=== PATIENT | female | born 1980 | race Caucasian/White ===

== ENCOUNTER 2016-07-06 17:45 | Emergency (ER) | payer BC ==
[2016-07-06 18:42] VITALS: BP 107/72
--- NOTE | 2016-07-06 18:56 | UC ---
Dizzy HPI HPI Summary: DIZZINESS X 1 DAY RIGHT EAR FULLNESS, , NO EAR PAIN + NAUSEA , NO VOMITING , NO MORILLO, NO FEVER, NO CHILLS, NO SINUS PAIN OR PRESSURE - History Of Current Complaint Chief Complaint: UCEar Stated Complaint: EAR ISSUES, VERTIGO Time Seen by Provider: 07/06/16 18:27 Hx Obtained From: Patient Hx Last Menstrual Period: 07/03/16 Onset/Duration: Gradual Onset, Lasting Days - 1, Still Present Timing: Constant Severity Initially: Moderate Severity Currently: Moderate Character: Weak, Dizzy Aggravating Factor(s): Change In Head Position Alleviating Factor(s): Rest Associated Signs And Symptoms: Positive: Nausea. Negative: Vomiting, Diaphoresis, Tinnitus, Chest Pain, SOB, Palpitations, Unsteady Gait, Visual Changes, Decreased Oral Intake, Change In Medication, Change In Diet, OTC Medications - Allergies/Home Medications Allergies/Adverse Reactions: Allergies Allergy/AdvReac Type Severity Reaction Status Date / Time No Known Allergies Allergy Verified 07/06/16 18:42 PMH/Surg Hx/FS Hx/Imm Hx Previously Healthy: Yes - Surgical History Surgical History: Yes Surgery Procedure, Year, and Place: gallbladder age 13 yrs - Family History Known Family History: Negative: Diabetes - Social History Alcohol Use: Weekly Substance Use Type: None Smoking Status (MU): Never Smoked Tobacco Review of Systems Constitutional: Negative Skin: Negative Eyes: Negative ENT: Negative Respiratory: Negative Cardiovascular: Negative Gastrointestinal: Negative All Other Systems Reviewed And Are Negative: Yes Physical Exam Triage Information Reviewed: Yes Appearance: Well-Appearing, No Pain Distress, Well-Nourished Vital Signs: Initial Vital Signs Temp 98.6 F 07/06/16 18:38 Pulse 50 07/06/16 18:38 Resp 16 07/06/16 18:38 BP 107/72 07/06/16 18:38 Pulse Ox 100 07/06/16 18:38 Vital Signs Reviewed: Yes Eye Exam: Normal Eyes: Positive: Conjunctiva Clear ENT Exam: Normal ENT: Positive: Normal ENT inspection, Hearing grossly normal Neck exam: Normal Neck: Positive: Supple, Nontender Respiratory: Positive: Chest non-tender, Lungs clear, Normal breath sounds Cardiovascular: Positive: RRR, No Murmur, Pulses Normal Musculoskeletal Exam: Normal UC Physical Exam Vital Signs On Initial Exam: Initial Vitals Temp Pulse Resp BP Pulse Ox 98.6 F 50 16 107/72 100 07/06/16 18:38 07/06/16 18:38 07/06/16 18:38 07/06/16 18:38 07/06/16 18:38 - Neurological Exam Neurological: Normal, Sensory/Motor Intact, Alert, Oriented to Person Place, Time, CN Intact II-III, Reflexes Intact, Normal Gait, Speech Normal Dizzy Course/Dx - Differential Dx/Diagnosis Provider Diagnoses: VERTIGO Discharge - Discharge Plan Condition: Stable Disposition: HOME Prescriptions: Meclizine TAB* [Antivert 12.5 TAB*] 25 mg PO TID PRN #21 tab PRN Reason: Dizziness Patient Education Materials: Vertigo (ED) Referrals: Anahy Almaguer MD [Primary Care Provider] - 7 Days
== END 2016-07-06 19:02 | disposition home or self-care (01) ==
LOC: UCCORT 17:45
DX: R42 Dizziness and giddiness (principal); R11.0 Nausea; Z90.49 Acquired absence of other specified parts of digestive tract
CPT/HCPCS: 99202; G0463

== ENCOUNTER 2017-12-17 18:08 | Emergency (ER) | payer BC ==
[2017-12-17 19:20] VITALS: BP 121/72
--- NOTE | 2017-12-17 19:55 | UC ---
Complaint Female HPI - HPI Summary HPI Summary: 37-year-old woman comes in with a complaint of vaginal discharge. It's been going on for couple of days. It's a ross colored discharge occasionally yellow. Very irritating. No dysuria and no fevers no chills no flank pain no abdominal pain. Patient reports she's had bacterial vaginosis before and that' s what this feels like. I asked her if she had any concerns of STI's she denied any concern of STI. She reports she has not been sexually active for a long time. - History Of Current Complaint Chief Complaint: UCGU Stated Complaint: DISCHARGE Time Seen by Provider: 12/17/17 19:33 Hx Last Menstrual Period: [id number] Pain Intensity: 0 - Allergies/Home Medications Allergies/Adverse Reactions: Allergies Allergy/AdvReac Type Severity Reaction Status Date / Time No Known Allergies Allergy Verified 12/17/17 19:20 PMH/Surg Hx/FS Hx/Imm Hx Previously Healthy: Yes - Surgical History Surgical History: Yes Surgery Procedure, Year, and Place: gallbladder age 13 yrs - Family History Known Family History: Negative: Diabetes - Social History Alcohol Use: Weekly Substance Use Type: None Smoking Status (MU): Current Some Day Smoker Review of Systems Constitutional: Negative Skin: Negative Eyes: Negative ENT: Negative Respiratory: Negative Cardiovascular: Negative Gastrointestinal: Negative Genitourinary: Vaginal/Penile Itching, Vaginal/Penile Discharge Motor: Negative Neurovascular: Negative Musculoskeletal: Negative Neurological: Negative Psychological: Negative Is Patient Immunocompromised?: No All Other Systems Reviewed And Are Negative: Yes Physical Exam Triage Information Reviewed: Yes Appearance: Well-Appearing, No Pain Distress, Well-Nourished Vital Signs: Initial Vital Signs Temp 98.7 F 12/17/17 19:14 Pulse 55 12/17/17 19:14 Resp 16 12/17/17 19:14 BP 121/72 12/17/17 19:14 Pulse Ox 100 12/17/17 19:14 Vital Signs Reviewed: Yes Eye Exam: Normal Eyes: Positive: Conjunctiva Clear Neck exam: Normal Neck: Positive: Supple Respiratory Exam: Normal Respiratory: Positive: Lungs clear, Normal breath sounds, No respiratory distress Cardiovascular Exam: Normal Cardiovascular: Positive: RRR Abdomen Description: Positive: Nontender, Soft. Negative: CVA Tenderness (R), CVA Tenderness (L) Bowel Sounds: Positive: Present Musculoskeletal Exam: Normal Musculoskeletal: Positive: Strength Intact, ROM Intact Neurological Exam: Normal Neurological: Positive: Alert Psychological Exam: Normal Psychological: Positive: Age Appropriate Behavior Skin Exam: Normal Complaint Female Dx - Course Course Of Treatment: I discussed checking for STI's with the pelvic exam. Patient declined the exam as she feels this is bacterial vaginosis and is not worried about STI's. We also discussed the urinalysis which she also declined. The plan is that she'll follow-up with her regular doctor get recheck sooner if worse or not improved. - Differential Dx/Diagnosis Provider Diagnoses: VAGINOSIS Discharge - Sign-Out/Discharge Documenting (check all that apply): Patient Departure All imaging exams completed and their final reports reviewed: No Studies - Discharge Plan Condition: Stable Disposition: HOME Prescriptions: metroNIDAZOLE [Flagyl] 500 mg PO BID #14 tablet Patient Education Materials: Bacterial Vaginosis (ED), Vaginitis (ED) Referrals: Anahy Almaguer MD [Primary Care Provider] - Additional Instructions: FOLLOW UP WITH YOUR DOCTOR IF NOT COMPLETELY IMPROVED. GET RECHECKED FOR ANY WORSENING OF YOUR CONDITION OR QUESTIONS OR CONCERNS. - Billing Disposition and Condition Condition: STABLE Disposition: Home
== END 2017-12-17 20:00 | disposition home or self-care (01) ==
LOC: UCEAST 18:08
DX: N76.0 Acute vaginitis (principal); F17.210 Nicotine dependence, cigarettes, uncomplicated
CPT/HCPCS: 99212; G0463